=== PATIENT | female | born 1985 | race Two or more races ===

== ENCOUNTER 2019-03-07 15:54 | Emergency (ER) | payer OTHER ==
[~2019-03-07] VITALS: Ht 165.1 cm; Wt 74.8 kg
[2019-03-07 16:30] VITALS: BP 119/76
[2019-03-07 18:29] LABS: Urine Bacteria FEW /hpf (None Seen); Urine Blood 1+ /uL (Negative); Urine Specific Gravity 1.009 (1.001-1.035); Urine WBC 38 /hpf (0 - 5)
== END 2019-03-07 18:55 | disposition left against medical advice (07) ==
LOC: ER 15:54
DX: R30.9 Painful micturition, unspecified (principal); R10.9 Unspecified abdominal pain; Z53.21 Procedure and treatment not carried out due to patient leaving prior to being seen by health care provider
CPT/HCPCS: 81001; 81025

== ENCOUNTER 2021-05-27 12:42 | Emergency (ER) | payer MEDICAID ==
[~2021-05-27] VITALS: Ht 165.1 cm; Wt 82.3 kg
[2021-05-27 12:47] VITALS: BP 121/80
[2021-05-27] MEDS ORDERED: ONDANSETRON HCL 4 MG/2 ML VIAL IV ONE (13:00)
[2021-05-27] MEDS ORDERED: SODIUM CHLORIDE 0.9% 500 ML IVB ONE (13:00)
[2021-05-27] MEDS ORDERED: SODIUM CHLORIDE 0.9% 1,000 ML IV ONE (13:00)
[2021-05-27 13:36] LABS: Basophils # (auto) 0 10 ^3/uL (0-0.2); Basophils % (auto) 0.2 % (0.0-2.0); Eosinophils # (auto) 0.1 10 ^3/uL (0-0.8); Eosinophils % (auto) 1.2 % (0.0-7.0); Hematocrit 38.4 % (36.0-46.0); Hemoglobin 13.1 g/dL (12.2-16.2); Lymphocytes # (auto) 2.2 10 ^3/uL (0.4-5.4); Lymphocytes % (auto) 18.4 % (10.0-50.0); Mean Corpuscular Hemoglobin 32.3 pg (28.0-32.0); Mean Corpuscular Hgb Conc. 34.2 g/dL (32.0-36.0); Mean Corpuscular Volume 94.5 fL (80.0-100.0); Monocytes # (auto) 0.7 10 ^3/uL (0-1.3); Monocytes % (auto) 5.7 % (0.0-12.0); Neutrophils # (auto) 9.1 10 ^3/uL (1.6-8.6); Neutrophils % (auto) 74.5 % (37.0-80.0); Red Blood Cells 4.07 10^6/uL (4.0-5.20); Red Cell Distribution Width 13.1 % (11.8-14.3); White Blood Cell 12.2 10^3/uL (4.4-10.8)
[2021-05-27 13:47] LABS: Albumin 3.1 g/dL (3.4-5.0); Calcium 8.6 mg/dL (8.5-10.1); Magnesium 2.2 mg/dL (1.6-2.6); Potassium 3.6 mmol/L (3.5-5.1)
[2021-05-27 13:48] LABS: Urine Bacteria FEW /hpf (None Seen); Urine Blood Negative /uL (Negative); Urine Specific Gravity 1.013 (1.001-1.035); Urine WBC 3 /hpf (0 - 5)
[2021-05-27 13:50] LABS: BUN/Creatinine Ratio 12.5
[2021-05-27 13:53] LABS: Bilirubin, Total 0.2 mg/dL (0.2-1.0); Total Protein 6.4 g/dL (6.4-8.2)
[2021-05-27 15:23] LABS: Thyroid Stimulating Hormone 0.83 uIU/mL (0.358-3.74)
[2021-05-27] MEDS ORDERED: cefTRIAXone 1GM/50ML D5W 50 ML IV ONE (15:30)
== END 2021-05-27 17:49 | disposition home or self-care (01) ==
LOC: EDBD 12:42 → ER 12:42
DX: O23.41 Unspecified infection of urinary tract in pregnancy, first trimester (principal); O20.8 Other hemorrhage in early pregnancy; N39.0 Urinary tract infection, site not specified; E44.1 Mild protein-calorie malnutrition; Z3A.08 8 weeks gestation of pregnancy; Z68.30 Body mass index [BMI] 30.0-30.9, adult
CPT/HCPCS: 36415; 76801; 80053; 81001; 83690; 83735; 84443; 84702; 85025; 96361; 96365; 96375; 99284; J0696; J2405; J7030; J7040

== ENCOUNTER 2021-07-04 11:09 | Emergency (ER) | payer MEDICAID ==
[~2021-07-04] VITALS: Ht 162.6 cm; Wt 81.6 kg
[2021-07-04 12:33] LABS: Basophils # (auto) 0 10 ^3/uL (0-0.2); Basophils % (auto) 0.4 % (0.0-2.0); Eosinophils # (auto) 0.1 10 ^3/uL (0-0.8); Eosinophils % (auto) 1.1 % (0.0-7.0); Hematocrit 36.8 % (36.0-46.0); Lymphocytes # (auto) 2.2 10 ^3/uL (0.4-5.4); Lymphocytes % (auto) 19.7 % (10.0-50.0); Mean Corpuscular Hemoglobin 33.5 pg (28.0-32.0); Mean Corpuscular Hgb Conc. 35.5 g/dL (32.0-36.0); Mean Corpuscular Volume 94.4 fL (80.0-100.0); Monocytes # (auto) 0.7 10 ^3/uL (0-1.3); Monocytes % (auto) 6.3 % (0.0-12.0); Neutrophils % (auto) 72.5 % (37.0-80.0); Nucleated Red Blood Cells % 0.2 %; Red Blood Cells 3.89 10^6/uL (4.0-5.20); Red Cell Distribution Width 13.5 % (11.8-14.3)
[2021-07-04 12:37] LABS: Calcium 8.3 mg/dL (8.5-10.1); Potassium 3.7 mmol/L (3.5-5.1)
[2021-07-04 12:53] LABS: BUN/Creatinine Ratio 11.1; Bilirubin, Total 0.2 mg/dL (0.2-1.0); Total Protein 6.2 g/dL (6.4-8.2)
[2021-07-04 13:36] LABS: Urine Bacteria NONE SEEN /hpf (None Seen); Urine Blood Negative /uL (Negative); Urine Specific Gravity 1.011 (1.001-1.035); Urine WBC 3 /hpf (0 - 5)
[2021-07-04 14:50] VITALS: BP 104/64
== END 2021-07-04 16:35 | disposition home or self-care (01) ==
LOC: ER 11:09
DX: O20.8 Other hemorrhage in early pregnancy (principal); Z3A.13 13 weeks gestation of pregnancy
CPT/HCPCS: 36415; 76801; 80053; 81001; 84702; 85025

== ENCOUNTER 2021-08-19 09:03 | Observation (INO) | payer MEDICAID ==
[~2021-08-19] VITALS: Ht 165.1 cm; Wt 86.2 kg
[2021-08-19 09:03] VITALS: BP 122/76
[2021-08-19] MEDS ORDERED: PREN-96 PO (10:13)
== END 2021-08-19 10:10 | disposition home or self-care (01) ==
LOC: ER 09:03 → UNDOADMOB 09:15 → LDRP 09:15 → UNDODISOB 10:28
PROVIDERS: ADMIT Obstetrics & Gynecology; ATTEND Obstetrics & Gynecology
DX: O26.892 Other specified pregnancy related conditions, second trimester (principal); R10.31 Right lower quadrant pain; Z3A.20 20 weeks gestation of pregnancy
CPT/HCPCS: 59025; 81002; 94760; G0378

== ENCOUNTER 2021-09-06 18:40 | Observation (INO) | payer MEDICAID ==
[~2021-09-06] VITALS: Ht 165.1 cm; Wt 86.2 kg
[~2021-09-06 18:40] MED LIST: PREN-96 PO
== END 2021-09-06 20:25 | disposition home or self-care (01) ==
LOC: LDRP 18:40
PROVIDERS: ADMIT Obstetrics & Gynecology; ATTEND Obstetrics & Gynecology
DX: O09.522 Supervision of elderly multigravida, second trimester (principal); O36.8120 Decreased fetal movements, second trimester, not applicable or unspecified; Z3A.23 23 weeks gestation of pregnancy
CPT/HCPCS: 59025; 76815; 81002; 94760; G0378

== ENCOUNTER 2021-11-26 12:16 | Observation (INO) | payer MEDICAID | END 2021-11-26 13:30 | disposition home or self-care (01) | LOC: LDRP 12:16 | PROVIDERS: ADMIT Obstetrics & Gynecology Obstetrics; ATTEND Obstetrics & Gynecology Obstetrics | DX: O12.03 Gestational edema, third trimester (principal); O36.8130 Decreased fetal movements, third trimester, not applicable or unspecified; Z3A.34 34 weeks gestation of pregnancy; Z91.040 Latex allergy status | CPT/HCPCS: 59025; 81002; G0378 ==

== ENCOUNTER → 2021-11-26 | Emergency (ER) | payer MEDICAID | END | disposition left against medical advice (07) | LOC: ER 11:44 | DX: R22.43 Localized swelling, mass and lump, lower limb, bilateral (principal); Z53.21 Procedure and treatment not carried out due to patient leaving prior to being seen by health care provider ==